=== PATIENT | male | born 1945 | race Caucasian/White ===

== ENCOUNTER 2018-04-25 09:38 | Emergency (ER) | payer SELFPAY ==
[2018-04-25 09:44] VITALS: BP 163/78; PULSE 58; RESP 16; TEMP 98.1; O2SAT 98
[2018-04-25] MEDS ORDERED: Lidocaine 1% Inj (20ml) INFIL STA (10:27)
[2018-04-25] MEDS ORDERED: Lidocaine 2% MPF (5 ml) Inj ONE (10:41)
--- NOTE | 2018-04-25 11:19 | RAD ---
Date of service: 04/25/2018 PROCEDURE: Left Wrist Radiographs. HISTORY: LEFT WRIST PAIN AFTER FALL R/O FX COMPARISON: None. FINDINGS: BONES: Impacted fracture of the distal radial metaphysis without intra-articular extension. Minimally displaced ulnar styloid fracture. JOINTS: Diffuse joint space narrowing. SOFT TISSUES: Circumferential wrist soft tissue swelling. OTHER FINDINGS: None. IMPRESSION: Impacted fracture of the distal radial metaphysis without intra-articular extension. Minimally displaced ulnar styloid fracture.
--- NOTE | 2018-04-25 11:19 | RAD ---
PROCEDURE: Left Hand Radiographs. HISTORY: LEFT HAND PAIN AFTER FALL R/O FX COMPARISON: None. FINDINGS: BONES: Impacted fracture of the distal radial metaphysis without intra-articular extension. Minimally displaced ulnar styloid fracture. JOINTS: Diffuse joint space narrowing. SOFT TISSUES: Circumferential wrist soft tissue swelling. OTHER FINDINGS: None. IMPRESSION: Impacted fracture of the distal radial metaphysis without intra-articular extension. Minimally displaced ulnar styloid fracture.
--- NOTE | 2018-04-25 11:21 | RAD ---
Date of service: 04/25/2018 PROCEDURE: Radiographs of the left elbow. HISTORY: S/P FALL R/O FX COMPARISON: No prior. FINDINGS: BONES: No acute fracture. JOINTS: Unremarkable. SOFT TISSUES: Normal. JOINT EFFUSION: None. OTHER FINDINGS: None IMPRESSION: No demonstrated fracture or dislocation.
--- NOTE | 2018-04-25 11:38 | RAD ---
Date of service: 04/25/2018 PROCEDURE: Left Wrist Radiographs. HISTORY: POST REDUCTION COMPARISON: Left wrist radiographs 04/25/2018 10:13 a.m.. FINDINGS: BONES: Cast obscures fine bony detail. Colles fracture distal left radius appears adequately reduced which is best apparent in the lateral view. No interval new fracture identified. Navicular bone remains intact swells remaining carpal bones as imaged. Nondisplaced ulnar styloid fracture reiterated. JOINTS: No subluxation or dislocation. SOFT TISSUES: Mild local soft tissue edema remains. OTHER FINDINGS: None. IMPRESSION: Adequate postreduction of distal left radial fracture as discussed above. Stable nondisplaced ulnar styloid fracture. Cast obscures fine bony and soft-tissue detail.
--- NOTE | 2018-04-25 11:57 | C.PDOC ---
History Of Present Illness 72 year old male presents to the ED for evaluation of left wrist pain after he sustained a fall earlier today. Patient states he slipped while going down the stairs, fell onto his left side, and landed onto his left wrist. He denies head injury, LOC, chest pain, shortness of breath, back pain, sensory changes. Time Seen by Provider: 04/25/18 09:47 Chief Complaint (Nursing): Upper Extremity Problem/Injury History Per: Patient History/Exam Limitations: no limitations Onset/Duration Of Symptoms: Hrs Current Symptoms Are (Timing): Still Present Quality: "Pain" Severity: Moderate Additional History Per: Patient Past Medical History Reviewed: Historical Data, Nursing Documentation, Vital Signs Vital Signs: Last Vital Signs Temp 98.1 F 04/25/18 09:42 Pulse 58 L 04/25/18 09:42 Resp 16 04/25/18 09:42 BP 163/78 H 04/25/18 09:42 Pulse Ox 98 04/25/18 23:39 - Medical History PMH: No Chronic Diseases Surgical History: No Surg Hx Family History: States: No Known Family Hx - Social History Hx Alcohol Use: No Hx Substance Use: No - Immunization History Hx Tetanus Toxoid Vaccination: No Hx Influenza Vaccination: No Hx Pneumococcal Vaccination: No Review Of Systems Constitutional: Negative for: Fever, Chills Cardiovascular: Negative for: Chest Pain Respiratory: Negative for: Shortness of Breath Gastrointestinal: Negative for: Nausea, Vomiting, Abdominal Pain Musculoskeletal: Positive for: Other (left wrist pain ). Negative for: Back Pain Skin: Negative for: Rash Neurological: Negative for: Weakness, Numbness, Headache, Other (head injury, LOC ) Physical Exam - Physical Exam Appears: Well, Non-toxic, Other (in mild to moderate pain ) Skin: Normal Color, Warm, Dry Head: Atraumatic, Normacephalic Eye(s): bilateral: Normal Inspection, PERRL, EOMI Oral Mucosa: Moist Neck: Normal ROM, No Midline Cervical Tenderness, No Paracervical Tenderness, No Step Off Deformity, Supple Chest: Symmetrical, No Deformity, No Tenderness Cardiovascular: Rhythm Regular Respiratory: Normal Breath Sounds, No Rales, No Rhonchi, No Wheezing Gastrointestinal/Abdominal: Normal Exam, Bowel Sounds, Soft, No Guarding, No Rebound Extremity: Normal ROM (digits of left hand ), Tenderness (left wrist diffuse TTP ), Capillary Refill (< 2 sec all digits ), Deformity (left distal radius/ulna), Swelling (left wrist ), No Other (elbow or shoulder tenderness ) Pulses: Left Radial: Normal, Right Radial: Normal Neurological/Psych: Oriented x3 Gait: Steady ED Course And Treatment O2 Sat by Pulse Oximetry: 98 (RA) Pulse Ox Interpretation: Normal - Other Rad Initial left wrist XR X-Ray: Interpreted by Me, Viewed By Me, Read By Radiologist Interpretation: PROCEDURE: Left Wrist Radiographs. . HISTORY: LEFT WRIST PAIN AFTER FALL R/O FX. COMPARISON: None. FINDINGS: BONES: Impacted fracture of the distal radial metaphysis without intra-articular extension. Minimally displaced ulnar styloid fracture. JOINTS: Diffuse joint space narrowing. SOFT TISSUES: Circumferential wrist soft tissue swelling. OTHER FINDINGS: None. IMPRESSION: Impacted fracture of the distal radial metaphysis without intra-articular extension. Minimally displaced ulnar styloid fracture. left elbow XR X-Ray: Interpreted by Me, Viewed By Me, Read By Radiologist Interpretation: PROCEDURE: Radiographs of the left elbow. HISTORY: S/P FALL R /O FX. COMPARISON: No prior. FINDINGS: BONES: No acute fracture. JOINTS: Unremarkable. SOFT TISSUES: Normal. JOINT EFFUSION: None. OTHER FINDINGS: None. IMPRESSION: No demonstrated fracture or dislocation. left hand XR X-Ray: Interpreted by Me, Viewed By Me, Read By Radiologist Interpretation: PROCEDURE: Left Hand Radiographs. HISTORY: LEFT HAND PAIN AFTER FALL R/O FX. COMPARISON: None. FINDINGS: BONES: Impacted fracture of the distal radial metaphysis without intra-articular extension. Minimally displaced ulnar styloid fracture. JOINTS: Diffuse joint space narrowing. SOFT TISSUES: Circumferential wrist soft tissue swelling. OTHER FINDINGS: None. IMPRESSION: Impacted fracture of the distal radial metaphysis without intra-articular extension. Minimally displaced ulnar styloid fracture. post-reduction left wrist XR X-Ray: Interpreted by Me, Viewed By Me, Read By Radiologist Interpretation: 04/25/2018. PROCEDURE: Left Wrist Radiographs. . HISTORY: POST REDUCTION. COMPARISON: Left wrist radiographs 04/25/2018 10:13 a.m.. FINDINGS: BONES: Cast obscures fine bony detail. Colles fracture distal left radius appears adequately reduced which is best apparent in the lateral view. No interval new fracture identified. Navicular bone remains intact swells remaining carpal bones as imaged. Nondisplaced ulnar styloid fracture reiterated. JOINTS: No subluxation or dislocation. SOFT TISSUES: Mild local soft tissue edema remains. OTHER FINDINGS: None. IMPRESSION: Adequate postreduction of distal left radial fracture as discussed above. Stable nondisplaced ulnar styloid fracture. Cast obscures fine bony and soft-tissue detail. Progress Note: Xrays of left wrist, elbow and hand ordered and reviewed. Xrays show fxs of distal radius/ulna. Reductinon done by me, patient tolerated well. Hematoma block done with 2% lidocaine, 5 ml local infiltration. Finger trap and weights used. Patient tolerated well. Volar splint was applied by me. Post- reduction XR shows adequate postreduction of fracture. Patient is resting comfortably and is stable for discharge. Patient given Rx for Acetaminophen with Codeine. He is advised to follow up with orthopedic care/hand surgery for further evaluation within 1 week. - Physician Consult Information Physician Contacted: Marlyn Cervantes Outcome Of Conversation: Discussed patient with Ortho PA, recommends patient follow up with Dr. Elizabeth's office, if unable to go there should call our clinic for appt on May 16, 2018. Orthopedic Time Out: Side verified, Site verified Procedure: Fracture reduction Location: Left, Wrist Performed by: Attending Physician Diagnosis: Fracture Type: Closed Other:: fracture of distal radius and ulna Anesthetic: Lidocaine 2% (5ml, locally ) Capillary refill: Normal Capillary Refill: Normal Compartment: Normal Distal Sensation: Normal Distal Motor Function: Normal Post-reduction Radiograph: Reduced Patient tolerated procedure: Well Disposition Counseled Patient/Family Regarding: Diagnosis, Need For Followup, Rx Given - Disposition Referrals: Siddhartha Elizabeth III, MD [Staff Provider] - [facility] [Outside] Disposition: HOME/ ROUTINE Disposition Time: 11:55 Condition: STABLE Additional Instructions: CALL FOR APPOINTMENT AT DR ELIZABETH'S OFFICE OR MAKE APPOINTMENT WITHOUT ORTHOPEDICS CLINIC MAY 16, 2018 RETURN TO ER IF SYMPTOMS WORSEN Prescriptions: Acetaminophen with Codeine [Tylenol with Codeine #3 Tablet] 1 each PO Q6 PRN # 15 tablet PRN Reason: pain Instructions: Wrist Fracture (DC), Radius Fracture (DC) Forms: [employer] (Slovak) Print Language: NIUEAN - POA Present On Arrival: Falls Or Trauma - Clinical Impression Clinical Impression: Distal radius fracture, Distal end of ulna fracture, closed - Scribe Statement The provider has reviewed the documentation as recorded by the Scribe (Adriana Bartlett) Provider Attestation: All medical record entries made by the Scribe were at my direction and personally dictated by me. I have reviewed the chart and agree that the record accurately reflects my personal performance of the history, physical exam, medical decision making, and the department course for this patient. I have also personally directed, reviewed, and agree with the discharge instructions and disposition.
== END 2018-04-25 12:15 | disposition home or self-care (01) ==
LOC: C.ER 09:38
DX: S52.502A Unspecified fracture of the lower end of left radius, initial encounter for closed fracture (principal); S52.692A Other fracture of lower end of left ulna, initial encounter for closed fracture; W10.9XXA Fall (on) (from) unspecified stairs and steps, initial encounter; Y92.9 Unspecified place or not applicable